=== PATIENT | female | born 1935 | race Two or more races ===

== ENCOUNTER 2017-06-04 06:32 | Emergency (ER) | payer MEDICARE, MEDICAID ==
[2017-06-04] MEDS: IOHEXOL 300 MG/ML 100ML VIAL. IV (07:15)
[2017-06-04] MEDS ORDERED: CONTRAST GIVEN MC (07:15)
[2017-06-04 07:18] LABS: ADD MAN DIFF? NO
[2017-06-04] MEDS: ONDANSETRON PF 4 MG/2 ML VIAL. IV (07:23)
[2017-06-04] MEDS: IV NORMAL SALINE 500ML BAG 500 ML IV ×2 (07:23→09:43)
[2017-06-04 07:24] LABS: BASO % 0 % (0-3); EOS # 0.1 x10^3/uL (0.0-0.7); EOS % 1 % (0-3); HEMATOCRIT 46.2 % (36.0-47.0); HEMOGLOBIN 15.6 g/dL (12.0-15.5); LYMPH # 3.2 x10^3/uL (1.0-4.8); LYMPH % 20 % (24-48); MEAN CORPUSCULAR HEMOGLOBIN 29 pg (25-35); MEAN CORPUSCULAR HGB CONC 34 g/dL (31-37); MEAN CORPUSCULAR VOLUME 87 fL (79-100); MONO % 6 % (0-9); NEUT # 11.4 x10^3uL (1.8-7.7); NEUT % 73 % (31-73); PLATELET COUNT 287 x10^3/uL (140-400); RED BLOOD COUNT 5.31 x10^6/uL (3.50-5.40); RED CELL DISTRIBUTION WIDTH 14.3 % (11.5-14.5); WHITE BLOOD COUNT 15.7 x10^3/uL (4.0-11.0)
[2017-06-04] MEDS: ASPIRIN 325 MG TABLET PO (07:25)
[2017-06-04] MEDS: fentaNYL PF VIAL 100 MCG/2 ML VIAL IV (07:25)
[2017-06-04 07:34] LABS: ALBUMIN 3.4 g/dL (3.4-5.0); ALBUMIN/GLOBULIN RATIO 0.7 (1.0-1.7); ALK PHOS 117 U/L (46-116); ALT (SGPT) 53 U/L (14-59); ANION GAP 14 (6-14); AST (SGOT) 32 U/L (15-37); BLOOD UREA NITROGEN 25 mg/dL (7-20); BUN/CREATININE RATIO 18 (6-20); CALCIUM 9.6 mg/dL (8.5-10.1); CARBON DIOXIDE 24 mmol/L (21-32); CHLORIDE 101 mmol/L (98-107); CREATININE 1.4 mg/dL (0.6-1.0); GLUCOSE 237 mg/dL (70-99); LIPASE 422 U/L (73-393); SODIUM 139 mmol/L (136-145); TOTAL BILIRUBIN 0.7 mg/dL (0.2-1.0); TOTAL PROTEIN 8.6 g/dL (6.4-8.2)
[2017-06-04 07:35] LABS: INR 1.2 (0.8-1.1); PARTIAL THROMBOPLASTIN TIME 34 SEC (24-38); PROTHROMBIN TIME PATIENT 14.4 SEC (11.7-14.0)
[2017-06-04 07:38] LABS: TROPONINI < 0.017 ng/mL (0.000-0.055)
[2017-06-04 07:39] LABS: NT-PRO BNP 253 pg/mL (0-449)
[2017-06-04 07:39] LABS: POTASSIUM 2.9 mmol/L (3.5-5.1)
[2017-06-04 07:41] LABS: LACTIC ACID 1.8 mmol/L (0.4-2.0)
[2017-06-04 08:50] LABS: BILIRUBIN,URINE NEGATIVE (NEG); CLARITY,URINE CLEAR; COLOR,URINE YELLOW; GLUCOSE,URINE NEGATIVE (NEG); NITRITE,URINE NEGATIVE (NEG); PH,URINE 5.5; PROTEIN,URINE NEGATIVE (NEG-TRACE); UROBILINOGEN,URINE 0.2 mg/dL (0.2 mg/dL)
[2017-06-04 09:04] LABS: BACTERIA,URINE 0 /HPF (0-FEW); RBC,URINE 0 /HPF (0-2); SQUAMOUS EPITHELIAL CELL,UR FEW /LPF; WBC,URINE 0 /HPF (0-4)
[2017-06-04] MEDS: POTASSIUM CHLORIDE 20 MEQ TABLET.ER. PO (11:33)
== END 2017-06-04 11:40 | disposition home or self-care (01) ==
LOC: ER 06:32
DX: R10.31 Right lower quadrant pain (principal); E87.6 Hypokalemia; R00.0 Tachycardia, unspecified; D72.829 Elevated white blood cell count, unspecified; I10 Essential (primary) hypertension; E11.65 Type 2 diabetes mellitus with hyperglycemia; Z90.49 Acquired absence of other specified parts of digestive tract; Z79.82 Long term (current) use of aspirin
CPT/HCPCS: 36415; 71045; 74177; 80053; 81001; 83605; 83690; 83880; 84484; 85025; 85610; 85730; 93005; 96361; 96374; 96375; 99285-25; J2405; J3010; J7040; P9612; Q9967

== ENCOUNTER 2017-06-15 08:46 | Emergency (ER) | payer MEDICARE, MEDICAID ==
[2017-06-15 09:50] LABS: ADD MAN DIFF? NO
[2017-06-15 09:57] LABS: BASO % 0 % (0-3); EOS # 0.1 x10^3/uL (0.0-0.7); EOS % 1 % (0-3); HEMATOCRIT 41.3 % (36.0-47.0); HEMOGLOBIN 14.2 g/dL (12.0-15.5); LYMPH # 1.6 x10^3/uL (1.0-4.8); LYMPH % 19 % (24-48); MEAN CORPUSCULAR HEMOGLOBIN 29 pg (25-35); MEAN CORPUSCULAR HGB CONC 34 g/dL (31-37); MEAN CORPUSCULAR VOLUME 86 fL (79-100); MONO # 0.3 x10^3/uL (0.0-1.1); MONO % 4 % (0-9); NEUT # 6.7 x10^3uL (1.8-7.7); NEUT % 77 % (31-73); PLATELET COUNT 303 x10^3/uL (140-400); RED BLOOD COUNT 4.83 x10^6/uL (3.50-5.40); RED CELL DISTRIBUTION WIDTH 14.3 % (11.5-14.5); WHITE BLOOD COUNT 8.8 x10^3/uL (4.0-11.0)
[2017-06-15 10:15] LABS: ANION GAP 18 (6-14); BLOOD UREA NITROGEN 11 mg/dL (7-20); BUN/CREATININE RATIO 8 (6-20); CALCIUM 9.9 mg/dL (8.5-10.1); CARBON DIOXIDE 19 mmol/L (21-32); CHLORIDE 96 mmol/L (98-107); CREATININE 1.3 mg/dL (0.6-1.0); GFR 39.2; GLUCOSE 141 mg/dL (70-99); POTASSIUM 3.6 mmol/L (3.5-5.1); SODIUM 133 mmol/L (136-145)
[2017-06-15 10:29] LABS: ALBUMIN 3.9 g/dL (3.4-5.0); ALK PHOS 89 U/L (46-116); ALT (SGPT) 46 U/L (14-59); AST (SGOT) 41 U/L (15-37); TOTAL BILIRUBIN 0.5 mg/dL (0.2-1.0); TOTAL PROTEIN 7.8 g/dL (6.4-8.2)
[2017-06-15] MEDS: IBUPROFEN 600 MG TABLET. PO (10:43)
[2017-06-15] MEDS: ACETAMINOPHEN 500 MG TABLET PO (10:43)
== END 2017-06-15 11:30 | disposition home or self-care (01) ==
LOC: ER 08:46
DX: F11.23 Opioid dependence with withdrawal (principal); G89.29 Other chronic pain; M25.552 Pain in left hip; M54.89 Other dorsalgia; E11.9 Type 2 diabetes mellitus without complications; I10 Essential (primary) hypertension; Z90.49 Acquired absence of other specified parts of digestive tract; F19.10 Other psychoactive substance abuse, uncomplicated
CPT/HCPCS: 36415; 73502; 80053; 85025; 99284; 99285